=== PATIENT | male | born 1985 | race Caucasian/White ===

== ENCOUNTER 2016-10-03 22:45 | Emergency (ER) | payer MEDICAID ==
--- NOTE | 2016-10-14 21:15 | ER ---
ADMIT: 10/03/2016 RM/LOC: ER [facility] MR#: [id number] [id number] [place], [place] [id number] [address] [place] [address] Emergency Room Report SEX: M AGE: 31 : 1985 DATE: 10/03/2016 ADDENDUM: CHIEF COMPLAINT: Cough and fever. HISTORY OF PRESENT ILLNESS: This is a 31-year-old, who has had this cough and fever for about 7 days. Today, he just said he just was feeling more weak, was worried that he has pneumonia, so came to the ER. CBC, CMP, lactic acid, influenza, blood culture x2, strep screen, and chest x-ray were done. There was a time when he was borderline hypoxic, so he was placed on 1 L of oxygen. We gave him a liter of fluids, gave him Tylenol, Decadron. Now, he feels significantly better, feels okay going home. His CBC was normal with a white count of 6.0. Platelets were slightly low at 116, hemoglobin normal at 16.1. CMP was normal except for potassium of 3.4 and bicarb low at 21. Lactic acid was 1. Strep test was negative. Influenza test was negative. I still told him that I do believe this possibly could be influenza. I told him to go home, push fluids. Continue Tylenol and Motrin for the fever. Follow up with his primary care physician if he worsens. CLINICAL IMPRESSION: Bronchitis. JOSIAH Quinonez / Adriano Stanofrd MD / modl JOB #: [id number] CC: Adriano Stanford MD, Attending Physician Marla Raoms MD, Family Physician
== END 2016-10-04 01:40 | disposition home or self-care (01) ==
LOC: ER 22:45
DX: J40 Bronchitis, not specified as acute or chronic (principal); F17.210 Nicotine dependence, cigarettes, uncomplicated; Z88.0 Allergy status to penicillin; Z98.890 Other specified postprocedural states